=== PATIENT | female | born 1940 | race Caucasian/White ===

== ENCOUNTER → 2017-03-26 | Outpatient (CLI) | payer OTHER | LOC: BMCIMAGING 09:01 | PROVIDERS: ATTEND Orthopaedic Surgery | DX: M25.561 Pain in right knee (principal); M25.762 Osteophyte, left knee; R93.6 Abnormal findings on diagnostic imaging of limbs; S82.102D Unspecified fracture of upper end of left tibia, subsequent encounter for closed fracture with routine healing ==

== ENCOUNTER → 2017-06-02 | Outpatient (CLI) | payer OTHER | LOC: BMCIMAGING 07:23 | PROVIDERS: ATTEND Obstetrics & Gynecology | DX: Z12.31 Encounter for screening mammogram for malignant neoplasm of breast (principal) | CPT/HCPCS: G0202 ==

== ENCOUNTER → 2017-06-06 | Outpatient (CLI) | payer OTHER | LOC: BMCIMAGING 10:55 | PROVIDERS: ATTEND Obstetrics & Gynecology | DX: N63 Unspecified lump in breast (principal) | CPT/HCPCS: 76641; G0206 ==

== ENCOUNTER → 2017-06-16 | Outpatient (CLI) | payer OTHER ==
[~2017-06-16] MED LIST: BUPIVACAINE 0.5% 10 ML SDV ONE; LIDO/EPI 1% **Not for Epidural 20 ML MDV ONE; LIDOCAINE 1% 300 MG/30 ML SDV ONE
[2017-06-23 13:09] LABS: ACCESSION # HR17-36791; INTERPRETATION See Comments
== END ==
LOC: FIMAGING 07:23
PROVIDERS: ATTEND Obstetrics & Gynecology
PROC: 0HBT3ZX Excision of Right Breast, Percutaneous Approach, Diagnostic (ICD-10-PCS; principal; 2017-06-16)
DX: C50.211 Malignant neoplasm of upper-inner quadrant of right female breast (principal)
CPT/HCPCS: 19083; 88360; 88361; G0206

== ENCOUNTER → 2017-09-25 | Outpatient (CLI) | payer OTHER | LOC: BMCIMAGING 09:34 | DX: M85.89 Other specified disorders of bone density and structure, multiple sites (principal) ==

== ENCOUNTER → 2018-09-28 | Outpatient (CLI) | payer OTHER | LOC: BMCIMAGING 09:48 | DX: Z13.820 Encounter for screening for osteoporosis (principal); M85.89 Other specified disorders of bone density and structure, multiple sites; R29.890 Loss of height; C50.911 Malignant neoplasm of unspecified site of right female breast; Z78.0 Asymptomatic menopausal state ==